=== PATIENT | female | born 1940 | race Caucasian/White ===

== ENCOUNTER → 2017-09-15 | Outpatient (CLI) | payer MEDICARE ==
--- NOTE | 2017-09-15 20:33 | XR ---
EXAMINATION TYPE: XR skull limited DATE OF EXAM: 09/15/2017 COMPARISON: NONE HISTORY: MRI clearance TECHNIQUE: 2 views FINDINGS: There is old left occipital craniotomy defect. There is dental work. I see no evidence of m etallic foreign body of the orbits. IMPRESSION: Previous surgery.
--- NOTE | 2017-09-15 21:33 | MR ---
EXAMINATION TYPE: MR brain wo/w con DATE OF EXAM: 09/15/2017 COMPARISON: August 16, 2017 HISTORY: Malignant neoplasm of temporal lobe TECHNIQUE: Multiplanar, multisequence images of the brain and brainstem is performed without and with IV contras t, utilizing 5 mL intravenous Gadavist . FINDINGS: There is a large 7 x 7 cm irregular area of pathologic enhancement involving the left posterior tempo ral lobe and left occipital lobe. There is pathologic enhancement across the midline extending into t he medial right occipital lobe through the posterior corpus callosum. There is effacement of the occi pital horn left lateral ventricle. There is slight shift of the midline to the right side. There is mild diffuse cerebral cortical atrophy. There is vasogenic edema and pathologic enhancement extending into the left posterior parietal lobe. IMPRESSION: Large enhancing irregular infiltrative type mass involving left temporal occipital and pa rietal lobe with involvement a crossing the midline through the corpus callosum. This is consistent w ith high-grade glioma. Left occipital craniotomy defect noted. There is increased mass effect compare d to old exam with shift of the midline slightly to the right side and more effacement of the occipit al horn left lateral ventricle. This is consistent with progression of tumor.
== END | disposition home or self-care (01) ==
LOC: RADMRIMAIN 18:42
PROVIDERS: ATTEND Radiology Radiation Oncology
DX: C71.2 Malignant neoplasm of temporal lobe (principal); Z98.890 Other specified postprocedural states
CPT/HCPCS: 82565; 70250; 70553; 36415; A9581